=== PATIENT | female | born 1980 | race Two or more races ===

== ENCOUNTER → 2020-03-30 13:34 | Outpatient (CLI) | payer OTHER | END | disposition home or self-care (01) | LOC: LAB 13:34 | PROVIDERS: ATTEND Urology | DX: N20.0 Calculus of kidney (principal); N30.00 Acute cystitis without hematuria ==

== ENCOUNTER 2024-05-03 11:15 | Inpatient (IN) | payer OTHER ==
[~2024-05-03] VITALS: Ht 157.5 cm; Wt 72.6 kg
[2024-05-03 13:10] VITALS: BP 122/81
[2024-05-10] MEDS ORDERED: CEFAZOLIN SODIUM 1,000 MG VIAL IV ONE (09:15)
[2024-05-10] MEDS ORDERED: MORPHINE SULFATE 4 MG/ML VIAL IV ONE ×2 (10:30→11:00)
[2024-05-10] MEDS ORDERED: PROMETHAZINE HCL 25 MG/ML AMPUL IV SCH (12:00)
[2024-05-10] MEDS ORDERED: MEPERIDINE HCL/PF 50 MG/ML VIAL IV SCH (12:00)
[2024-05-10 12:36] VITALS: BP 134/79
[2024-05-10 16:00] VITALS: BP 133/73
[2024-05-10 18:20] LABS: HEMATOCRIT 32.3 % (36.0-45.00); HEMOGLOBIN 10.6 g/dL (12.0-15.00); MEAN CELL VOLUME 81.9 fL (80.00-100.00); MEAN CORPUSCULAR HEMOGLOBIN 26.9 pg (27.00-32.0); MEAN CORPUSCULAR HGB CONC 32.8 g/dl (32.0-36.0); PLATELET COUNT 232 K/uL (150-450); RED BLOOD COUNT 3.95 M/uL (4.00-6.00); RED CELL DISTRIBUTION WIDTH 14.1 % (11.5-14.5)
[2024-05-10 20:00] VITALS: BP 117/76
[2024-05-11] VITALS: BP 122/79
[2024-05-11] MEDS ORDERED: SIMETHICONE 125 MG CAPSULE PO SCH (05:00)
[2024-05-11] MEDS ORDERED: POLYETHYLENE GLYCOL 3350 17 GM BLIST.PACK PO SCH (05:00)
[2024-05-11] MEDS ORDERED: GABAPENTIN 300 MG CAPSULE PO SCH (05:00)
[2024-05-11] MEDS ORDERED: ACETAMINOPHEN 500 MG GEL..CAP PO SCH (06:00)
[2024-05-11 09:10] VITALS: BP 129/80
[2024-05-11 16:00] VITALS: BP 119/76
[2024-05-12 01:00] VITALS: BP 110/73
[2024-05-12] MEDS ORDERED: GABAPENTIN300 MG PO (06:52)
[2024-05-12] MEDS ORDERED: PAIN RELIEVER500 M2 PO (06:52)
[2024-05-12] MEDS ORDERED: POLY119PG PO (06:52)
[2024-05-12] MEDS ORDERED: SIMETHICONE125 M1 PO (06:53)
[2024-05-12 08:25] VITALS: BP 113/76
== END 2024-05-12 12:59 | disposition home or self-care (01) | DRG 743 ==
LOC: O/R 05-10 05:30 → SURH 05-10 10:00 → OB/GYN 05-10 11:10 → SURH 05-10 11:15 → OB/GYN 05-12 12:59
PROVIDERS: ADMIT Obstetrics & Gynecology; ATTEND Obstetrics & Gynecology
PROC: 0UT70ZZ Resection of Bilateral Fallopian Tubes, Open Approach (ICD-10-PCS; 2024-05-10)
PROC: 0UT90ZZ Resection of Uterus, Open Approach (ICD-10-PCS; principal; 2024-05-10 10:00)
DX: D25.1 Intramural leiomyoma of uterus (principal); R10.2 Pelvic and perineal pain; Z20.822 Contact with and (suspected) exposure to COVID-19; N72 Inflammatory disease of cervix uteri